=== PATIENT | male | born 1985 | race Caucasian/White ===

== ENCOUNTER 2016-09-15 01:56 | Emergency (ER) | payer OTHER ==
[2016-09-15] MEDS ORDERED: IBUPROFEN 600 MG TABLET PO ONE (03:24)
[2016-09-15] MEDS ORDERED: LIDOCAINE 1%/EPINEPHRINE INJ 20 ML VIAL INJ ONE (03:24)
[2016-09-15] MEDS ORDERED: BACITRACIN ZINC OINTMENT 15 GM TP ONE (03:27)
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
[2016-09-15 06:49] VITALS: BP 127/83
== END 2016-09-15 05:36 | disposition home or self-care (01) ==
LOC: ER 01:56
DX: S09.12XA Laceration of muscle and tendon of head, initial encounter (principal); S01.111A Laceration without foreign body of right eyelid and periocular area, initial encounter; R51 Headache; Y04.2XXA Assault by strike against or bumped into by another person, initial encounter; Y93.89 Activity, other specified; Y92.59 Other trade areas as the place of occurrence of the external cause
CPT/HCPCS: 99283; 12052; J3490

== ENCOUNTER 2017-06-23 21:28 | Emergency (ER) | payer OTHER ==
[2017-06-23] MEDS ORDERED: TETRACAINE HCL 0.5% OPH SOLN 2 ML ONE (21:45)
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
[2017-06-23] MEDS ORDERED: ERYTHROMYCIN 0.5% OPH OINT 1 GM UNIT DOSE OS ONE (22:28)
[2017-06-23 23:11] VITALS: BP 140/79
== END 2017-06-23 23:09 | disposition home or self-care (01) ==
LOC: ER 21:28
DX: T15.11XA Foreign body in conjunctival sac, right eye, initial encounter (principal); H57.11 Ocular pain, right eye; X58.XXXA Exposure to other specified factors, initial encounter; Y99.0 Civilian activity done for income or pay; F17.200 Nicotine dependence, unspecified, uncomplicated
CPT/HCPCS: 99283